=== PATIENT | male | born 1965 | race Caucasian/White ===

== ENCOUNTER → 2024-11-18 | Outpatient (REF) | payer BC ==
[~2024-11-18] MED LIST: ASPIRIN81 MG PO; ATENOLOL50 MG PO; LISINOPRIL10 MG PO; [UNRECOGNIZED DRUG - OTHER] PO
== END ==
LOC: US 11:08
PROVIDERS: ATTEND Nurse Practitioner
DX: R74.8 Abnormal levels of other serum enzymes (principal)
CPT/HCPCS: 76700